=== PATIENT | female | born 1980 | race Caucasian/White ===

== ENCOUNTER 2019-07-13 14:12 | Outpatient (CLI) | payer OTHER, SELFPAY ==
--- NOTE | 2019-07-13 14:18 | XRR_ITS ---
PROCEDURE INFORMATION: Exam: XR Left Ankle Exam date and time: 07/13/2019 2:30 PM Age: 38 years old Clinical indication: Pain; Ankle and foot; Left; Patient HX: Hurt it while running 1 week ago; Additional info: Lt ankle pain TECHNIQUE: Imaging protocol: XR Left ankle. Views: 1 or 2 views. COMPARISON: No relevant prior studies available. FINDINGS: Bones/joints: Negative for acute bony abnormality Soft tissues: Normal. XR/XR ankle LT 2V [id number] IMPRESSION: No acute findings.
--- NOTE | 2019-07-13 14:19 | XRR_ITS ---
PROCEDURE INFORMATION: Exam: XR Left Foot Exam date and time: 07/13/2019 2:30 PM Age: 38 years old Clinical indication: Pain; Ankle and foot; Left; Patient HX: Injured foot and ankle while running 1 week ago; Additional info: Lt ankle pain TECHNIQUE: Imaging protocol: XR Left foot. Views: 1 or 2 views. COMPARISON: No relevant prior studies available. FINDINGS: Bones/joints: Negative for acute bony abnormality Soft tissues: Normal. XR/XR foot LT 2V [id number] IMPRESSION: No acute findings.
== END 2019-07-13 14:13 | disposition home or self-care (01) ==
LOC: RADWPI 14:16
PROVIDERS: Absent Provider Family Medicine; Family Provider Family Medicine; Visit Provider Family Medicine
DX: M25.572 Pain in left ankle and joints of left foot (principal)
CPT/HCPCS: 73600; 73620

== ENCOUNTER 2019-10-07 14:23 | Emergency (ER) | payer OTHER, SELFPAY ==
[2019-10-07 14:34] VITALS: BP 119/68; PULSE 78; RESP 18; TEMP 36.7; O2SAT 99; BMI 19.5
--- NOTE | 2019-10-07 14:36 | ED_ITS ---
HPI - Abdominal Pain General: Chief Complaint: Abdominal Pain Stated Complaint: possible kidney stone Time Seen by Provider: 10/07/19 14:32 Source: patient Mode of arrival: ambulatory Limitations: no limitations History of Present Illness: HPI narrative: 38-year-old female who is here with low back pain and lower abdominal pain. States pain is sharp in nature. She states she has had dysuria as well. Patient was concerned she could have UTI and was sent here from urgent care to rule out a kidney stone. States pain is a 7 out of 10. Denies any fever or vomiting. Associated Symptoms: Denies chills and fever(s) Review of Systems Const: Denies: fever(s), chills, body aches or change in appetite Eyes: Denies: blurry vision or eye discomfort ENMT: Denies: throat pain or dental pain Card: Denies: chest pain Resp: Denies: dyspnea GI: Reports: abdominal pain : Reports: flank pain and urinary urgency Musc: Denies: neck pain or back pain Skin/Breast: Denies: rash Neuro: Denies: headache(s) Psych: Denies: depression Michael/Lymph: Denies: easy bruising All/Imm: Denies: urticaria PFSH ED PFSH: Social History (Updated 10/07/19 @ 13:51 by Zoya Dorantes LPN) Smoking and tobacco status: never smoked Alcohol intake: never Physical Exam Const: COMMON NORMALS: no acute distress, patient oriented x3 and healthy appearing HENMT: COMMON NORMALS: normocephalic and atraumatic HEAD & SCALP: normocephalic and atraumatic Eye: COMMON NORMALS: Equal, round and reactive pupils present and EOMs intact bilaterally PUPIL: Yes Equal, round and reactive pupils present Neck/C-Spine: COMMON NORMALS: full ROM and supple Chest: COMMONS NORMALS: normal inspection of the chest and normal palpation of entire chest wall Resp: COMMON NORMALS: normal respiratory effort, No retractions, No use of accessory muscles and clear to auscultation bilaterally AUSCULTATION: clear to auscultation bilaterally Cardio: COMMON NORMALS: regular rate, regular rhythm and No murmurs present (Cardio) RATE: regular rate RHYTHM: regular rhythm GI: COMMON NORMALS: Normal to inspection, nondistended, normoactive bowel sounds present, Soft to palpation, non-tender and no masses PALPATION: Yes Soft to palpation Back/Pelvis: OTHER: Left lower back tenderness moderate in nature. No midline tenderness Extremity: COMMON NORMALS: normal to inspection and full ROM Neuro: COMMON NORMALS: patient oriented x3, moves all extremities and no focal motor deficits Psych: COMMON NORMALS: mental status grossly normal, Normal thought process present and cooperative THOUGHT PROCESS: Normal thought process present Skin: COMMON NORMALS: no rashes or lesions noted and no wounds GENERAL SKIN EXAM: no rashes or lesions noted Course Vital Signs: Vital signs: Vital Signs Temperature 98.1 F 10/07/19 14:34 Pulse Rate 78 10/07/19 15:25 Respiratory Rate 16 10/07/19 15:25 Blood Pressure 107/67 10/07/19 15:25 Pulse Oximetry 99 10/07/19 15:25 MDM - Abdominal Pain MDM Narrative: Medical decision making narrative: Patient presents here with lower abdominal pain with a possible colitis versus cystitis. Patient denies have any vaginal discharge or pain with sex. We will place her on doxycycline and give her Rocephin here. She is to follow-up with PCP in 3 to 5 days. Did inform her of the lobe on her liver lesion as well and she is to follow-up with her PCP for that. Patient is to return if worsening. She understands and agrees to plan. Lab Data: Labs: Lab Results 10/07/19 10/07/19 Range/Units 14:50 14:50 HCG, Qual Negative (Negative) Urine Color Yellow (Yellow) Urine Appearance Clear (CLEAR) Urine pH 5 (5-7) Ur Specific Gravit y 1.015 (1.005-1.030) Urine Protein Neg (Negative) Urine Glucose (UA) Norm (Normal) Urine Ketones Negative (Negative) Urine Blood 2+ H (Negative) Urine Nitrate Negative (Negative) Urine Bilirubin Neg (NEGATIVE) Urine Urobilinogen Norm (Negative) mg/dL Ur Leukocyte Andria ase Negative (Negative) Urine RBC 5-10 H (0-2) /hpf Urine WBC 15-25 H (0-5) /hpf Ur Squamous Epith Cells 5-10 H (0-5) Ur Transition Epit h Cell Rare /hpf Amorphous Sediment Not Reportable Urine Bacteria 1+ H (NONE) Urine Mucus 1+ Imaging Data ^: CT Abd/Pel: Radiologist's impression: [facility] [address] [address] [address] Scan Report Signed Patient: Briseida Caballero Unit #: [id number] : 1980 Age/Sex: 38 / F ADM Date: 10/07/19 Loc: ER Room/Bed: Attending Dr: Ordering Provider/Ordering MD: Danny Parker MD Date of Service: 10/07/19 Procedure(s): CT kidney stone 08906 Accession Number(s): [id number] Report Number: [id number] WS: [id number] EXAM: CT OF THE ABDOMEN AND PELVIS WITHOUT CONTRAST DATE OF EXAMINATION: 10/07/2019, 1449 hours COMPARISON: None. HISTORY: 38 years old with bilateral flank pain. Clinical working diagnosis of kidney stones. Prior hysterectomy. TECHNIQUE: Transaxial computed tomography images obtained through the abdomen and pelvis without utilization of contrast viewed in multiple windows with reconstructions. DLP: 540.[address] scans at [facility] use at least one of these dose optimization techniques: automated exposure control; mA and/or kV adjustment per patient size (includes targeted exams where dose is matched to clinical indication); or iterative reconstruction. FINDINGS: Lung bases are clear. Bilateral breast implants demonstrated. Heart size is normal. The aorta is normal in caliber. Without IV contrast evaluation of the lumen is considered inadequate. Liver attenuation for the most part is normal. There is a low-density mass lesion in segment 7 of the liver which will require further imaging. Approximately 31 x 24 x 30 mm in size. Further evaluation of this lesion recommended. CT of the abdomen with IV contrast performed as a triple phase exam recommended. There is a slightly elongated [place] lobe of the liver. Gallbladder is normally distended. No pericholecystic inflammatory changes are seen. No biliary dilatation is noted. The spleen is normal in appearance. The pancreas is normal appearance. Adrenal glands are normal appearance. Both kidneys are normal in size and attenuation. On the right there is a small nonobstructing calcification inferiorly about 2 mm in size. On the left there is a small area of calcification 6.8 mm in size in the inferior calyx. No obstructive uropathy is seen. No ureteral stones. Stomach and small bowel are normal in appearance. Moderate amount of stool is demonstrated. Most prominent in the rectal vault. There is edema in the deep pelvis around the colon and the vaginal cuff. Suggest possible proctitis or stercoral colitis versus related to pelvic inflammatory disease. Correlation with clinical symptomatology recommended. Colon is otherwise normal in caliber. I suspect I see portions of a normal retrocolic appendix. No intraperitoneal or retroperitoneal adenopathy or masses seen. Bladder is minimally distended. There is air in the bladder lumen rather than the bladder wall. Suggest recent catheterization. If there has been no recent catheterization further evaluation for gas-forming urinary tract infection should be considered. No groin hernia or umbilical hernia is identified. Uterus is absent. No definite adnexal mass. No appreciable degenerative changes are seen in the spine. CT/CT kidney stone [id number] IMPRESSION: Some edema seen in the deep pelvis around the colon and vaginal cuff. Fairly nonspecific. Please correlate for possible colitis versus pelvic inflammatory disease. Air in the bladder lumen presumably iatrogenic. Please see body of the report. Lesion in the right lobe of the liver which will require further evaluation. CT of the abdomen with IV contrast performed as a triple phase exam recommended. Nonobstructing calculi calculus in both kidneys. No obstructive uropathy. Other nonemergent findings as described in the body of the report. Discharge Plan Discharge Patient Disposition: Home Clinical Impression: Acute cystitis Abdominal pain Qualifiers: Abdominal location: periumbilical Qualified Code(s): R10.33 - Periumbilical pain Condition: Stable Prescriptions: [place] 5-325 mg tablet 1 tab PO Q6H PRN (Reason: pain) Qty: 8 RF: 0 ondansetron 4 mg tablet,disintegrating 4 mg PO Q6H PRN (Reason: nausea and vomiting) Qty: 14 RF: 0 doxycycline hyclate 100 mg capsule 100 mg PO BID 10 Days Qty: 20 RF: 0 No Action zolpidem [Ambien] 5 mg tablet PO DAILY RF: 0 clonazepam [Klonopin] 2 mg tablet 2 mg PO DAILY RF: 0 Discharge Orders: Discharge Order (Routine); Ordered 10/07/19 Ordered By: Danny Parker Referrals: Tor Mcleod MD [Primary Care Provider] - 4-7 days Discharge Diet: Advance as tolerated Discharge Activity: Resume usual activity Patient Instructions: Abdominal Pain (ED) Coding Level of Care Code ED Loss Prevention And Safety Manager for Chg Fwd Exam Comprehensive
--- NOTE | 2019-10-07 14:36 | CT_ITS ---
WS: [id number] EXAM: CT OF THE ABDOMEN AND PELVIS WITHOUT CONTRAST DATE OF EXAMINATION: 10/07/2019, 1449 hours COMPARISON: None. HISTORY: 38 years old with bilateral flank pain. Clinical working diagnosis of kidney stones. Prior hysterecto my. TECHNIQUE: Transaxial computed tomography images obtained through the abdomen and pelvis without utilization of contrast viewed in multiple windows with reconstructions. DLP: 540.[address] scans at [facility] use at least one of these dose optimization techniques: automat ed exposure control; mA and/or kV adjustment per patient size (includes targeted exams where dose is matched to clinical indication); or iterative reconstruction. FINDINGS: Lung bases are clear. Bilateral breast implants demonstrated. Heart size is normal. The aorta is norm al in caliber. Without IV contrast evaluation of the lumen is considered inadequate. Liver attenuatio n for the most part is normal. There is a low-density mass lesion in segment 7 of the liver which saundra l require further imaging. Approximately 31 x 24 x 30 mm in size. Further evaluation of this lesion r ecommended. CT of the abdomen with IV contrast performed as a triple phase exam recommended. There is a slightly elongated [place] lobe of the liver. Gallbladder is normally distended. No pericholecystic inflammatory changes are seen. No biliary dilatation is noted. The spleen is normal in appearance. The pancreas is normal appearance. Adrenal glands are normal appearance. Both kidneys are normal in size and attenuation. On the right there is a small nonobstructing calcifi cation inferiorly about 2 mm in size. On the left there is a small area of calcification 6.8 mm in si ze in the inferior calyx. No obstructive uropathy is seen. No ureteral stones. Stomach and small bowel are normal in appearance. Moderate amount of stool is demonstrated. Most prom inent in the rectal vault. There is edema in the deep pelvis around the colon and the vaginal cuff. S uggest possible proctitis or stercoral colitis versus related to pelvic inflammatory disease. Correla tion with clinical symptomatology recommended. Colon is otherwise normal in caliber. I suspect I see portions of a normal retrocolic appendix. No intraperitoneal or retroperitoneal adenopathy or masses seen. Bladder is minimally distended. There is air in the bladder lumen rather than the bladder wall. Sugge st recent catheterization. If there has been no recent catheterization further evaluation for gas-for neida urinary tract infection should be considered. No groin hernia or umbilical hernia is identified. Uterus is absent. No definite adnexal mass. No appreciable degenerative changes are seen in the spine. CT/CT kidney stone [id number] IMPRESSION: Some edema seen in the deep pelvis around the colon and vaginal cuff. Fairly no nspecific. Please correlate for possible colitis versus pelvic inflammatory dis ease. Air in the bladder lumen presumably iatrogenic. Please see body of the report. Lesion in the right lobe of the liver which will require further evaluation. CT of the abdomen with IV contrast performed as a triple phase exam recommended. Nonobstructing calculi calculus in both kidneys. No obstructive uropathy. Other nonemergent findings as described in the body of the report.
[2019-10-07 15:21] LABS: HCG Qualitative Urine. Negative (Negative)
[2019-10-07 15:25] VITALS: BP 107/67; PULSE 78; RESP 16; O2SAT 99
[2019-10-07 15:28] LABS: Add Urine Culture? Yes; Add Urine Microscopic? YES; Bacteria Urine 1+; Bilirubin Urine Neg (NEGATIVE); Blood Urine 2+ (Negative); Glucose Urine UA Norm (Normal); Ketones Urine Negative (Negative); Leukocyte Esterase Urine Negative (Negative); Mucus Urine 1+; Nitrate Urine Negative (Negative); Protein Urine Neg (Negative); Specific Gravity, Urine 1.015 (1.005-1.030); Transitional Epi Cells Urine RARE /hpf; Urine Appearance Clear (CLEAR); Urine Color Yellow (Yellow); Urobilinogen Urine Norm (Negative); WBC Urine 15-25 /hpf (0-5); pH Urine 5 (5-7)
[2019-10-07] MEDS: ondansetron 2 mg/ML SDV 2 mL 4 MG IVP (15:29)
[2019-10-07] MEDS: sodium chloride 0.9% 1,000 ML 999 ML IV (15:29)
[2019-10-07] MEDS: ketorolac 30 mg/mL INJ IVP (15:29)
[2019-10-07] MEDS: cefTRIAXone 1,000 MG in sodium chloride 0.9% (plus) 50 ML 100 MG IV (15:34)
[2019-10-07 16:11] VITALS: BP 107/56; PULSE 70; RESP 18; TEMP 36.6; O2SAT 98
== END 2019-10-07 16:19 | disposition home or self-care (01) ==
PROVIDERS: Emergency Provider Emergency Medicine; PCP Family Medicine
DX: N30.00 Acute cystitis without hematuria (principal)
CPT/HCPCS: 12345; 74176; 81000; 81001; 81025; 87077; 87086; 87186; 87491; 87591; 96365; 96375; 99283; J0696; J1885; J2405; J7030

== ENCOUNTER 2020-08-06 23:33 | Emergency (ER) | payer OTHER, SELFPAY ==
--- NOTE | 2020-08-06 23:40 | ECG_ITS ---
[facility] Test Date: 2020-08-07 Pat Name: Briseida Caballero Department: Room: Gender: Female Md Physician Dermatologist: : 1980 Requested By: Danny Parker Order Number: [id number] Mehnaz MD: Brittany Guerrero M.D. Measurements Intervals [place] Rate: 73 P: 83 IA: 153 QRS: 63 QRSD: 82 T: 69 QT: 408 QTc: 452 Interpretive Statements SINUS RHYTHM POSSIBLE LEFT ATRIAL ENLARGEMENT [-0.1mV P WAVE IN V1/V2] MODERATE T-WAVE ABNORMALITY, CONSIDER ANTERIOR ISCHEMIA [-0.1+ mV T WAVE IN V3/V4] INTERPRETATION BASED ON A DEFAULT AGE OF 40 YEARS No previous ECG available for comparison Electronically Signed On 08-08-2020 14:22:14 CDT by Brittany Guerrero M.D. [id number] f
[2020-08-06 23:55] VITALS: BP 113/70; PULSE 75; RESP 18; TEMP 36.7; O2SAT 99; BMI 19.8
--- NOTE | 2020-08-07 00:21 | ED_ITS ---
HPI - Overdose General: Chief Complaint: Overdose Stated Complaint: took 4 sleeping pills\Heart beating slow Time Seen by Provider: 08/07/20 00:21 History of Present Illness: HPI Narrative: Patient reports she was reaching for the bottle of stool softener and grabbed the Benadryl instead and ingested 4 tablets for a total of 200 mg of Benadryl. Patient reports her son called poison control and they recommended she be evaluated in the ER. Patient appears well. Patient appears no acute distress. complaint: accidental overdose Onset (ago): hour(s) Context: Accidental Overdose: medication error Review of Systems General: Reports: 10 or more systems reviewed and unremarkable except in HPI and below PFSH ED PFSH: Social History (Updated 10/07/19 @ 13:51 by Zoya Dorantes LPN) Smoking and tobacco status: never smoked Alcohol intake: never Physical Exam Const: COMMON NORMALS: no acute distress and patient oriented x3 GENERAL APPEARANCE: cooperative HENMT: COMMON NORMALS: normocephalic and Normal external nose present HEAD & SCALP: normal to inspection and normocephalic NOSE: Normal external nose present MOUTH: Normal oral and palatal mucosa present Eye: GENERAL EYE: appearance normal, both eyes and all related structures Neck/C-Spine: COMMON NORMALS: full ROM Chest: COMMONS NORMALS: normal inspection of the chest Resp: COMMON NORMALS: normal respiratory effort EFFORT & INSPECTION: Yes able to speak in complete sentences Cardio: COMMON NORMALS: regular rate and regular rhythm RATE: regular rate RHYTHM: regular rhythm GI: COMMON NORMALS: non-tender : COMMON NORMALS: Yes no CVA tenderness BLADDER/KIDNEY EXAM: Yes no CVA tenderness Back/Pelvis: COMMON NORMALS: no CVA tenderness and thoracic and lumbar spine normal to inspection Extremity: COMMON NORMALS: normal to inspection Neuro: COMMON NORMALS: patient oriented x3 and moves all extremities Psych: COMMON NORMALS: mental status grossly normal and cooperative Skin: COMMON NORMALS: no rashes or lesions noted GENERAL SKIN EXAM: no rashes or lesions noted Course Vital Signs: Vital signs: Vital Signs Temperature 98.1 F 08/06/20 23:55 Pulse Rate 75 08/06/20 23:55 Respiratory Rate 18 08/06/20 23:55 Blood Pressure 113/70 08/06/20 23:55 Pulse Oximetry 99 08/06/20 23:55 MDM - Overdose MDM Narrative: Medical decision making narrative: Patient came in today for concerns of accidental ingestion of 200 mg of diphenhydramine. Patient had talked to poison control and they recommended she be evaluated in the ER due to her concerns of a slow heart rate. On exam patient's heart rate was 75 bpm, EKG showed a sinus rhythm. Differential diagnosis includes but not limited to accidental versus intentional overdose of medications, arrhythmia, respiratory depression. Patient appeared well. Review of the literature noted that in pediatric 7.5 mg/kg was safe for home observation which will put a dose of 375 mg with this patient. Also review noted that 1000 mg was considered a toxic dose for diphenhydramine. Patient had no symptoms. EKG showed a sinus rhythm with a rate of [address] elevation or significant abnormality related to QT prolongation. Reviewed exam with patient with recommendations for treatment and follow-up. Patient reported understanding and agreed to plan. Patient will not take any other medications tonight and that her body clear of the diphenhydramine. I encourage fluids and rest. Patient did deny any suicidal or homicidal intent. EKG Data^: EKG 1: Attestation: I personally reviewed and interpreted this EKG as follows: (120, EKG shows sinus rhythm with a regular rate at 73 bpm, no ST elevation, no ectopy. No prior exam is available for comparison.) Discharge Plan Discharge Patient Disposition: Home Clinical Impression: Ingestion, drug, inadvertent or accidental Qualifiers: Encounter type: initial encounter Qualified Code(s): T50.901A - Poisoning by unspecified drugs, medicaments and biological substances, accidental (unintentional), initial encounter Condition: Stable Prescriptions: No Action zolpidem [Ambien] 5 mg tablet PO DAILY RF: 0 clonazepam [Klonopin] 2 mg tablet 2 mg PO DAILY RF: 0 [place] 5-325 mg tablet 1 tab PO Q6H PRN (Reason: pain) Qty: 8 RF: 0 ondansetron 4 mg tablet,disintegrating 4 mg PO Q6H PRN (Reason: nausea and vomiting) Qty: 14 RF: 0 Discharge Orders: Discharge ED (Routine); Ordered 08/07/20 Ordered By: Tuan Murdock Referrals: Tor Mcleod MD [Primary Care Provider] - Discharge Diet: Usual diet Discharge Activity: Increase activity as tolerated Patient Instructions: Opioid Safety Activity Restrictions/Additional Instructions: Avoid the use of any other sedatives for the next 8 hours. Drink plenty of water. Follow-up with primary care as needed. Return to the emergency room for new concerns. Coding Level of Care Code ED Nuclear Equipment Test Engineer for Merna Denise Exam Comprehensive
[2020-08-07 01:34] VITALS: BP 114/76; PULSE 76; RESP 16; O2SAT 99
== END 2020-08-07 01:35 | disposition home or self-care (01) ==
PROVIDERS: Emergency Provider Nurse Practitioner Family; PCP Family Medicine
DX: T50.901A Poisoning by unspecified drugs, medicaments and biological substances, accidental (unintentional), initial encounter (principal)
CPT/HCPCS: 93005; 99282

== ENCOUNTER 2020-09-12 09:43 | Outpatient (CLI) | payer OTHER, SELFPAY ==
--- NOTE | 2020-09-12 09:49 | MM_ITS ---
WS: [id number] Exam: [id number] Date/Time of Exam: 09/12/2020 10:01 AM Reason For Exam: SCREENING VIEWS: MLO and CC views both breasts. Breast implant displacement MLO and CC views also included in the series. No prior studies. Findings: There was no sign of mass, architectural distortion or suspicious calcification in either breast. He terogeneously dense. Intact bilateral breast implants noted. MM/[id number] Impression: BI-RADS: 2-Benign FOLLOW-UP: 1 Year Follow-up This mammogram was also analyzed by the Computer Aided Detection System R2 Imag e Chair Inspector And Leveler.
== END 2020-09-12 09:44 | disposition home or self-care (01) ==
LOC: RADSHAW 09:45
PROVIDERS: PCP Family Medicine; Visit Provider Family Medicine
DX: Z12.31 Encounter for screening mammogram for malignant neoplasm of breast (principal)
CPT/HCPCS: 77067

== ENCOUNTER 2020-11-22 02:13 | Emergency (ER) | payer OTHER, SELFPAY ==
[2020-11-22 02:26] VITALS: BP 101/73; PULSE 61; RESP 17; TEMP 36.6; O2SAT 98; BMI 19.5
[2020-11-22] MEDS: sodium chloride 0.9% 1,000 ML 999 ML IV (03:12)
[2020-11-22] MEDS: ketorolac 30 mg/mL INJ 15 MG IVP (03:12)
[2020-11-22] MEDS: ondansetron 2 mg/ML SDV 2 mL 4 MG IVP (03:12)
[2020-11-22 03:13] LABS: Basophils % 0.6 %; Eosinophils # 0.1 10^3/uL (0.0-0.8); Eosinophils % 2.3 %; Hematocrit 37.2 % (37.0-47.0); Hemoglobin 12.2 g/dL (11.5-15.3); Lymphocytes # 1.5 10^3/uL (0.8-4.8); Mean Corpuscular HGB Conc 32.8 g/dL (30.0-36.0); Mean Corpuscular Hemoglobin 30.4 pg (28.0-34.0); Mean Corpuscular Volume 92.8 fl (81-99); Mean Platelet Volume 11.4 fL (7.4-10.4); Monocytes # 0.4 10^3/uL (0.2-0.9); Monocytes % 8.3 %; Neutrophils # 2.72 10^3/uL (1.8-7.7); Neutrophils % 57.8 %; Nucleated Red Blood Cells % 0 %; Platelet Count 142 10^3/cmm (130-400); Red Blood Count 4.01 10^6/uL (4.1-5.3); Red Cell Distribution Width 12.3 % (12.1-15.1); White Blood Count 4.7 10^3/uL (4.0-10.0)
--- NOTE | 2020-11-22 03:24 | ED_ITS ---
HPI - Abdominal Pain General: Chief Complaint: Abdominal Pain Stated Complaint: Throat\Head Pain Time Seen by Provider: 11/22/20 02:35 History of Present Illness: HPI narrative: Healthy 39-year-old female who says she has been sick for 4 days. She has had sore throat, abdominal pain, mild diarrhea. No vomiting she has had a mild cough. No shortness of breath. She says her son has been sick, but is recovered now. She has not been vaccinated for COVID-19 MD elicited complaint: abdominal pain Pertinent past history: none Onset (ago): day(s) Pain Consistency: intermittent Location: Diffuse Severity: moderate Radiation: none Migration to: no migration Relieving factors: nothing Associated Symptoms: Reports diarrhea and nausea; Denies dysuria, fever(s), hematochezia and vomiting Review of Systems Const: Denies: fever(s) ENMT: Reports: throat pain and odynophagia; Denies: swelling of lips/tongue Card: Denies: chest pain or palpitations Resp: Reports: non-productive cough; Denies: dyspnea or productive cough GI: Reports: nausea and diarrhea; Denies: vomiting or hematochezia : Denies: dysuria PFSH ED PFSH: Social History (Updated 10/07/19 @ 13:51 by Zoya Dorantes LPN) Smoking and tobacco status: never smoked Alcohol intake: never Physical Exam Const: COMMON NORMALS: no acute distress, patient oriented x3 and alert NUTRITIONAL APPEARANCE: thin ORIENTATION/CONSCIOUSNESS: Yes awake, Yes oriented to person, Yes oriented to place and Yes oriented to time HENMT: COMMON NORMALS: normocephalic and Normal external nose present HEAD & SCALP: normocephalic FACE & SINUS: normal facial exam and face symmetric NOSE: Normal external nose present, Normal nares present and Abnormal mucous membranes and turbinates present erythematous MOUTH: Normal oral and palatal mucosa present and tongue normal THROAT: uvula midline and abnormal tonsil bilateral Resp: COMMON NORMALS: normal respiratory effort, No use of accessory muscles and clear to auscultation bilaterally AUSCULTATION: clear to auscultation bilaterally Cardio: COMMON NORMALS: regular rate and regular rhythm RATE: regular rate RHYTHM: regular rhythm GI: COMMON NORMALS: Normal to inspection, nondistended, normoactive bowel sounds present and Soft to palpation PALPATION: Yes Soft to palpation and Yes Tenderness to palpation present (GI) (mild epigastric) Neuro: COMMON NORMALS: patient oriented x3 SENSORIUM/ORIENTATION: Yes alert, Yes oriented to person, Yes oriented to place and Yes oriented to time Course Vital Signs: Vital signs: Vital Signs Temperature 97.8 F 11/22/20 02:26 Pulse Rate 58 L 11/22/20 04:22 Respiratory Rate 16 11/22/20 04:22 Blood Pressure 104/68 11/22/20 04:22 Pulse Oximetry 99 11/22/20 04:22 MDM - Abdominal Pain MDM Narrative: Medical decision making narrative: Laboratory is benign. Strep is negative. Rapid Covid, done because the patient has been symptomatic for 4 days, is negative as well. She is given a liter of fluid here, Toradol, dexamethasone for the laryngitis. She is given antiemetics also. Lab Data: Labs: Lab Results 11/22/20 11/22/20 11/22/20 03:00 03:00 03:15 WBC 4.7 10^3/uL 10^3/ uL (4.0-10.0) RBC 4.01 10^6/uL L 10 ^6/uL (4.1-5.3) Hgb 12.2 g/dL g/dL (11.5-15.3) Hct 37.2 % % (37.0-47.0) MCV 92.8 fl fl (81-99) MCH 30.4 pg pg (28.0-34.0) MCHC 32.8 g/dL g/dL (30.0-36.0) RDW 12.3 % % (12.1-15.1) Plt Count 142 10^3/cmm 10^3 /cmm (130-400) MPV 11.4 fL H fL (7.4-10.4) Neut % (Auto) 57.8 % % Lymph % (Auto) 31.0 % % [place] % (Auto) 8.3 % % Eos % (Auto) 2.3 % % Baso % (Auto) 0.6 % % Neut # (Auto) 2.72 10^3/uL 10^3 /uL (1.8-7.7) Lymph # (Auto) 1.5 10^3/uL 10^3/ uL (0.8-4.8) [place] # (Auto) 0.4 10^3/uL 10^3/ uL (0.2-0.9) Eos # (Auto) 0.1 10^3/uL 10^3/ uL (0.0-0.8) Baso # (Auto) 0.0 10^3/uL 10^3/ uL (0.0-0.1) Nucleated RBC % (a uto) 0 % % Nucleated RBCs # 0.0 /100WBC /100W BC Sodium 137 mmol/L mmol/L (136-145) Potassium 3.8 mmol/L mmol/L (3.5-5.1) Chloride 101 mmol/L mmol/L (98-107) Carbon Dioxide 29 mmol/L mmol/L (22-29) Anion Gap 10.8 (5-19) BUN 11 mg/dL mg/dL (6-20) Creatinine 0.8 mg/dL mg/dL (0.5-0.9) GFR Calculation 79.4 mL/min L mL/ min (90-130) Glucose 90 mg/dL mg/dL (65-115) Calculated Osmolal ity 283 mOsm/kg L mOs m/kg (285-295) Calcium 9.0 mg/dL mg/dL (8.5-10.5) Total Bilirubin 0.2 mg/dL mg/dL (0.15-1.2) AST 28 U/L U/L (0-32) ALT 30 U/L U/L (0-33) Alkaline Phosphata se 63 IU/L IU/L (35-105) C-Reactive Protein 0.3 mg/L mg/L (0.0-4.9) Total Protein 6.7 g/dL g/dL (6.6-8.7) Albumin 4.0 g/dL g/dL (3.5-5.2) Globulin 2.7 g/dL g/dL (1.3-4.6) Lipase 31 U/L U/L (13-60) Procalcitonin 0.03 ng/mL ng/mL (0-0.5) Urine Color Yellow (Yellow) Urine Appearance Clear (CLEAR) Urine pH 5 (5-7) Ur Specific Gravit y 1.015 (1.005-1.030) Urine Protein Neg (Negative) Urine Glucose (UA) Norm (Normal) Urine Ketones Negative (Negative) Urine Blood Neg (Negative) Urine Nitrate Negative (Negative) Urine Bilirubin Neg (Negative) Urine Urobilinogen Norm mg/dL mg/dL (Negative) Ur Leukocyte Andria ase Negative (Negative) SARS-CoV-2 Ag (Rap id) Group A Strep Rapi d 11/22/20 11/22/20 03:20 03:22 WBC RBC Hgb Hct MCV MCH MCHC RDW Plt Count MPV Neut % (Auto) Lymph % (Auto) [place] % (Auto) Eos % (Auto) Baso % (Auto) Neut # (Auto) Lymph # (Auto) [place] # (Auto) Eos # (Auto) Baso # (Auto) Nucleated RBC % (a uto) Nucleated RBCs # Sodium Potassium Chloride Carbon Dioxide Anion Gap BUN Creatinine GFR Calculation Glucose Calculated Osmolal ity Calcium Total Bilirubin AST ALT Alkaline Phosphata se C-Reactive Protein Total Protein Albumin Globulin Lipase Procalcitonin Urine Color Urine Appearance Urine pH Ur Specific Gravit y Urine Protein Urine Glucose (UA) Urine Ketones Urine Blood Urine Nitrate Urine Bilirubin Urine Urobilinogen Ur Leukocyte Andria ase SARS-CoV-2 Ag (Rap id) Negative (Negative) Group A Strep Rapi d Negative (Negative) Discharge Plan Discharge Patient Disposition: Home Clinical Impression: Laryngitis, acute, Gastroenteritis Condition: Stable Prescriptions: New Zithromax 250 mg tablet See Rx Instructions .ROUTE .COMPLEX Qty: 6 RF: 0 No Action zolpidem [Ambien] 5 mg tablet PO DAILY RF: 0 clonazepam [Klonopin] 2 mg tablet 2 mg PO DAILY RF: 0 [place] 5-325 mg tablet 1 tab PO Q6H PRN (Reason: pain) Qty: 8 RF: 0 ondansetron 4 mg tablet,disintegrating 4 mg PO Q6H PRN (Reason: nausea and vomiting) Qty: 14 RF: 0 Discharge Orders: Discharge ED (Routine); Ordered 11/22/20 Ordered By: Jett Boyd Referrals: Tor Mcleod MD [Primary Care Provider] - 1-3 days Activity Restrictions/Additional Instructions: Return for fever despite 2-3 doses of antibiotics, worsening symptoms despite treatment, any other new or concerning symptoms. Drink plenty of fluids. The steroid you were given will help your throat over the next few days. Coding Level of Care Code ED [employer] Sales[employer] for Chg Fwd Exam Detailed
[2020-11-22 03:36] LABS: Add Urine Microscopic? NO; Charge for UA Resulting for Rev
[2020-11-22 03:40] LABS: Blood Urine Neg (Negative); Glucose Urine UA Norm (Normal); Ketones Urine Negative (Negative); Protein Urine Neg (Negative); Specific Gravity, Urine 1.015 (1.005-1.030); Urine Appearance Clear (CLEAR); Urine Color Yellow (Yellow); pH Urine 5 (5-7)
[2020-11-22 03:41] LABS: Bilirubin Urine Neg (Negative); Leukocyte Esterase Urine Negative (Negative); Nitrate Urine Negative (Negative); Urobilinogen Urine Norm (Negative)
[2020-11-22 03:45] LABS: Rapid Strep A Test Negative (Negative)
[2020-11-22 03:46] LABS: Alanine Aminotransferase 30 U/L (0-33); Alkaline Phosphatase 63 IU/L (35-105); Anion Gap 10.8 (5-19); Aspartate Amino Transferase 28 U/L (0-32); Blood Urea Nitrogen 11 mg/dL (6-20); C Reactive Protein 0.3 mg/L (0.0-4.9); Carbon Dioxide 29 mmol/L (22-29); Chloride 101 mmol/L (98-107); Globulin 2.7 g/dL (1.3-4.6); Glomerular Filtration Rate 79.4 mL/min (90-130); Glucose 90 mg/dL (65-115); Lipase 31 U/L (13-60); Osmolality Calculated 283 mOsm/kg (285-295); Potassium 3.8 mmol/L (3.5-5.1); Sodium 137 mmol/L (136-145); Total Bilirubin 0.2 mg/dL (0.15-1.2); Total Protein 6.7 g/dL (6.6-8.7)
[2020-11-22 03:52] LABS: Procalcitonin 0.03 ng/mL (0-0.5)
[2020-11-22 03:56] LABS: SARS Covid-2 Antigen Negative (Negative)
[2020-11-22] MEDS: dexamethasone 4 mg/mL INJ 8 MG IVP (04:03)
[2020-11-22 04:22] VITALS: BP 104/68; PULSE 58; RESP 16; O2SAT 99
== END 2020-11-22 04:20 | disposition home or self-care (01) ==
PROVIDERS: Emergency Provider Emergency Medicine; PCP Family Medicine
DX: K52.9 Noninfective gastroenteritis and colitis, unspecified (principal); J04.0 Acute laryngitis
CPT/HCPCS: 80053; 81003; 83690; 84145; 85025; 86140; 87081; 87426; 87880; 96361; 96374; 96375; 99283; J1100; J1885; J2405; J7030

== ENCOUNTER → 2021-12-07 17:36 | Outpatient (BNVA) | payer OTHER, SELFPAY | PROVIDERS: PCP Family Medicine; Visit Provider Family Medicine | DX: N39.0 Urinary tract infection, site not specified (principal) | CPT/HCPCS: 81000; 87077; 87086; 87184 ==

== ENCOUNTER 2022-05-24 07:46 | Outpatient (CLI) | payer OTHER, SELFPAY ==
--- NOTE | 2022-05-24 08:00 | MM_ITS ---
WS: [id number] BILATERAL SCREENING DIGITAL BREAST MAMMOGRAPHY WITH AYAAN DISPLACEMENT VIEWS. CAD PERFORMED. HISTORY: SCREENING COMPARISON: 09/12/2020 Bilateral craniocaudal and mediolateral oblique views are performed with tomosynthesis and SM. Ayaan displacement views in CC and MLO projection also performed. Breasts composition: The breasts are extremely dense, which lowers the sensitivity of mammography. I mplants are intact. No suspicious masses or calcifications are identified. No capsular contraction. V donato symmetric and stable appearance. MM/[place] [id number] IMPRESSION: BI-RADS: 2-Benign FOLLOW-UP: 1 Year Follow-up
== END 2022-05-24 07:47 | disposition home or self-care (01) ==
PROVIDERS: PCP Family Medicine; Visit Provider Family Medicine
DX: Z12.31 Encounter for screening mammogram for malignant neoplasm of breast (principal)
CPT/HCPCS: 77063; 77067

== ENCOUNTER 2022-06-23 06:24 | Outpatient (CLI) | payer OTHER, SELFPAY ==
--- NOTE | 2022-06-23 | US_ITS ---
WS: [id number] RIGHT UPPER QUADRANT ULTRASOUND HISTORY: RUQ PAIN COMPARISON: CT 10/07/2019 Liver: 16.5 cm in length. Normal size liver and echogenicity. No bile duct dilatation or mass. No talisha er lesions are identified today. Portal Vein: Normal hepatopetal flow with monophasic waveform. Gallbladder: Normally distended gallbladder with no stones or wall thickening. CBD: 0.4 cm Pancreas: Normal size and echogenicity. Right kidney: 9.8 cm in length. Normal size and echogenicity. No hydronephrosis or mass. Aorta and IVC: Normal size aorta. On the imaging of the IVC there is an area of low attenuation in th e IVC which needs to be further evaluated. This could very well be artifact. IVC thrombus should be e xcluded. No ascites. US/US abdomen limited [id number] IMPRESSION: 1. Normal gallbladder. No bile duct dilatation. 2. Area of increased echogenicity and soft tissue in the lumen of the IVC. Thi s may be artifact but thrombus should be excluded. Probably the most efficient way to evaluate would be to repeat ultrasound with attention to the IVC and atr ial RIGHT atrial junction.
== END 2022-06-23 06:25 | disposition home or self-care (01) ==
PROVIDERS: PCP Family Medicine; Visit Provider Internal Medicine
DX: R10.11 Right upper quadrant pain (principal)
CPT/HCPCS: 76705

== ENCOUNTER 2022-09-13 07:44 | Outpatient (CLI) | payer OTHER, SELFPAY ==
--- NOTE | 2022-09-13 07:49 | NM_ITS ---
WS: [id number] NUCLEAR MEDICINE HIDA SCAN WITH GALLBLADDER EJECTION FRACTION HISTORY: RIGHT UPPER QUADRANT PAIN COMPARISON: 06/23/2022 TECHNIQUE: The patient was intravenously injected with 7.5 mCi of TC99m Mebrofenin. Immediate imaging over the right upper quadrant was followed by 5 minute image and additional images for a total of 60 minutes. Normal uptake of radiotracer throughout the liver. Activity identified in the gallbladder at 10 minutes and well distended by 60 minutes. Activity in the proximal small bowel was seen by 50 minutes. Good washout of the radiotracer from the liver by 60 minutes. The patient then drank 8 ounces of Ensure Plus. Ejection fraction at 73 minutes was 74%. Normal GB ej ection fraction is 35-75%. Post fatty meal symptoms: None. NM/NM hepatobiliary w phar* [id number] IMPRESSION: 1. Normal HIDA scan. 2. Normal gallbladder ejection fraction.
== END 2022-09-13 07:45 | disposition home or self-care (01) ==
LOC: RAD 07:45
PROVIDERS: PCP Family Medicine; Visit Provider Surgery
DX: R10.11 Right upper quadrant pain (principal)
CPT/HCPCS: 78227; A9537